=== PATIENT | male | born 1965 ===

== ENCOUNTER 2019-07-22 20:04 | Emergency (ER) | payer OTHER ==
[~2019-07-22] VITALS: Ht 182.9 cm; Wt 83.1 kg
[2019-07-22 20:29] VITALS: BP 130/92
--- NOTE | 2019-07-22 22:04 | NUR ---
WHILE PARISA BURGOS AND I RESOLVED AN OMNICELL DISCREPENCY, THE PATIENT LEFT
--- NOTE | 2019-07-22 22:05 | NUR ---
INTERPRETATIVE DANCERAUBREY ZIMMERMAN INFORMED WELL DR ACOSTA
== END 2019-07-22 22:13 | disposition left against medical advice (07) ==
LOC: ER 20:05
DX: F10.99 Alcohol use, unspecified with unspecified alcohol-induced disorder (principal); Z53.21 Procedure and treatment not carried out due to patient leaving prior to being seen by health care provider; Y90.9 Presence of alcohol in blood, level not specified